=== PATIENT | female | born 1990 | race Caucasian/White ===

== ENCOUNTER 2019-06-30 13:52 | Emergency (ER) | payer MEDICAID ==
[~2019-06-30] VITALS: Ht 165.1 cm; Wt 68.2 kg
[2019-06-30 13:57] VITALS: BP 122/72; Ht 165.1 cm; Wt 68.2 kg
[2019-06-30 14:19] LABS: APPEARANCE HAZY (CLEAR); COLOR STRAW (YELLOW)
[2019-06-30 14:20] LABS: BACTERIA MODERATE /hpf (NEGATIVE); BILIRUBIN NEGATIVE (NEGATIVE); GLUCOSE NEGATIVE (NEGATIVE); KETONE NEGATIVE (NEGATIVE); NITRITE NEGATIVE (NEGATIVE); PROTEIN NEGATIVE (NEGATIVE); RED CELLS - URINE 0-5 /hpf (0-5); UROBILINOGEN NORMAL (NORMAL)
[2019-06-30 15:13] LABS: HCG URINE NEGATIVE (NEGATIVE)
[2019-06-30] MEDS ORDERED: MACROBID100 MG PO (15:42)
== END 2019-06-30 15:53 | disposition home or self-care (01) ==
LOC: D.ER 13:52
PROVIDERS: Family Medicine
DX: N39.0 Urinary tract infection, site not specified (principal)

== ENCOUNTER 2020-08-13 05:50 | Day surgery (SDC) | payer MEDICAID ==
[~2020-08-13] VITALS: Ht 165.1 cm; Wt 82.6 kg
[~2020-08-13 05:50] MED LIST: MACROBID100 MG PO
[2020-08-13 06:58] LABS: HCG SERUM NEGATIVE (NEGATIVE)
[2020-08-13 07:16] VITALS: Ht 165.1 cm; Wt 82.6 kg
[2020-08-13 07:24] LABS: HEMATOCRIT 45.2 % (36.0-48.0); HEMOGLOBIN 14.9 g/dL (12-16); MCH 29.7 pg (26.0-34.0); RBC 5.02 10x6/uL (4.00-5.40); RDW 12.9 % (11.5-14.5); WBC 6.3 10x3/uL (4.8-10.8)
--- NOTE | 2020-08-13 15:52 | NUR ---
IV D/C'D WITH CANNULA INTACT, PRESSURE HELD AND DRSG PLACED. DISCHARGE INSTRUCTIONS GIVEN AND PT VERBALIZED AN UNDERSTANDING.
== END 2020-08-13 10:50 | disposition home or self-care (01) ==
LOC: D.OPS 05:50
PROVIDERS: Anesthesiology; ATTEND Obstetrics & Gynecology Maternal & Fetal Medicine
DX: N94.10 Unspecified dyspareunia (principal); N89.8 Other specified noninflammatory disorders of vagina